=== PATIENT | male | born 1985 | race Caucasian/White ===

== ENCOUNTER 2017-10-10 14:19 | Inpatient (IN) | payer OTHER, SELFPAY ==
[2017-10-10] VITALS (9 sets, daily range): BP systolic 144–157; BP diastolic 88–109; PULSE 59–81; RESP 18; TEMP 36.6–37.1; O2SAT 94–99; BMI 21.7; BMI 21.8
--- NOTE | 2017-10-10 14:45 | PCM.HP.STD ---
Problem List (1) Alcohol withdrawal Status: Acute (2) Tobacco abuse Status: Chronic (3) Alcohol abuse Status: Chronic (4) Seizure disorder Status: Chronic History of Present Illness Date of Admission: 10/10/17 Chief Complaint: Alcohol withdrawal. The patient is a 32 year old M with past medical history as mentioned above presented to the [facility] office requesting admission for alcohol withdrawal for medical stabilization. Patient has been drinking at least 10-12 beers daily for the last 8 years and last drink was last night. Early this morning, he started having symptoms of withdrawal including hand tremors and restlessness, associated with anxiety, but has been progressive since this morning and he came to the [facility]'s office requesting admission for medical stabilization and to avoid having seizures. He denied abdominal pain, nausea or vomiting. Denied chest pain or shortness of breath. Denied urinary symptoms. Denied cough or sputum production. He denies use of any other recreational drugs. He has a history of seizure ?1 back in 2009 and since then, he has been on Keppra. His seizure problem has been stable. It is not clear if that seizure is due to alcohol withdrawal. He had alcohol abuse problem since he was 24 years old, has been drinking almost every day about 10-12 beers. He is a smoker, smokes about 1 pack daily for more than 10 years. At this time, he is afebrile, heart rate stable, blood pressure slightly elevated, pulse ox is maintained on room air. He was a direct admit and no blood work done at this time. He is being admitted for alcohol withdrawal for medical stabilization. Past Medical History Past Medical History (Chronic Problems): Chronic Problems Tobacco abuse (Chronic) Alcohol abuse (Chronic) Seizure disorder (Chronic) Allergies No Known Allergies Allergy (Verified 10/10/17 14:44) Home Medications: Ambulatory Orders Medication Instructions Recorded Levetiracetam [Keppra] 500 mg PO DAILY 10/10/17 Surgical History: no surgical history Psychiatric History: No pertinent psych hx Smoking Status: Current every day smoker Alcohol: Heavy Drugs: None - *Family History Maternal History Items: No pertinent history Paternal History Items: No pertinent history Review of Systems Constitutional: Denies: Anorexia, Chills, Fever, Weakness Eyes: Denies: Blurred vision, Double vision, Drainage, Redness HEENT: Denies: Difficulty Hearing, Ear Pain, Eye Pain, Nasal Congestion, Sore Throat Cardiovascular: Denies: Chest Pain, Chest Pressure, Chest Tightness, Heaviness, Light Headedness, Palpitations, Syncope Respiratory: Denies: Cough, Pleuritic Pain, Shortness of Breath, Sputum production, Wheezing Gastrointestinal: Denies: Abdominal Pain, Constipation, Diarrhea, Nausea, Vomiting Genitourinary: Denies: Dysuria, Frequency, Hematuria Musculoskeletal: Denies: Arm Pain, Back Pain, Foot Pain Skin: Denies: Dryness, Rash Neurological: Denies: Balance problems, Double vision, Change in Speech, Slurred speech, Confusion, Headaches, Incoordination, Numbness, Tingling, Seizures Psychiatric: Reports: Anxiety. Denies: Depression Endocrine: Denies: Change in Body Habitus, Polydipsia VTE Information - Inpt Only VTE Present on Admission: No VTE Mechan Device Prophylaxis: None VTE Pharm Prophylaxis ordered?: No Patient Problems: Active and Suspected Problems Alcohol withdrawal (Acute) - Physical Exam General: Alert, Oriented x3, Cooperative, - - Minimal anxiety. HEENT: Atraumatic, PERRLA, EOMI, Normocephalic Oral: Moist Mucosa, No Gingival or Mucosal Lesions/ Ulcerations Neck: Supple, No JVD, Negative Carotid Bruits, Trachea Midline, Thyroid Normal Size and Texture Lungs: Clear to auscultation, Normal air movement, No rhonchi, No wheeze, No rales Cardiovascular: Regular rate, Regular Rhythm, Normal S1, Normal S2, No murmurs Abdomen: Bowel Sounds Present, Soft, Non Tender, Non-Distended, No Hepato-splenomegaly Extremities: No clubbing, No cyanosis, No edema Skin: No rashes, No breakdown Lymphatic: No Cervical, Supraclavicular, or Inguinal Adenopathy Neurological: Cranial nerves II-XII grossly intact, Motor Exam 5/5 strength throughout Psych/Mental Status: Normal Affect, Anxious, Alert and oriented to time, place, person, mood and affect Vital Signs Temp Pulse Resp BP Pulse Ox 98.8 F 81 18 157/96 H 99 10/10/17 14:42 10/10/17 14:42 10/10/17 14:42 10/10/17 14:42 10/10/17 14:42 Oxygen Delivery Method Room Air Weight: 165 lb Body Mass Index (BMI) 21.7 Assessment/Plan All Active Problems Alcohol withdrawal (Acute) This is a 32 year-old male patient presented to the [facility] office requesting admission for alcohol withdrawal for medical stabilization. #1 acute alcohol withdrawal: He has been drinking for 8 years, every day, 10-12 beers daily, last drink was last night. Denied use of any other recreational drugs. He had a history of seizure in 2009, not clear if it is due to alcohol withdrawal, has been on Keppra since then. [facility], cardiac monitoring, CIWA protocol, seizure precautions, initiate [facility] protocol for alcohol withdrawal with tapering course of Ativan, CIWA protocol, stat CBC, CMP, blood alcohol level, urine drug screen, pro time and INR, serum lipase, folic acid and thiamine supplement, multivitamins, as needed Tylenol, Catapres, Bentyl, Vistaril, methocarbamol, Zofran, Mirapex and Seroquel. #2 seizure disorder: He had one seizure back in 2009, not clear if it is due to alcohol withdrawal. He has been on Keppra since then and has been stable. Plan to continue Keppra. #3 tobacco abuse: NicoDerm patch if desired. #4 alcohol abuse: Plan as above. #5 DVT prophylaxis: Low risk patient, no prophylaxis indicated. This note was generated with [employer] dictation software. It may contain incorrect words, spelling, and punctuation that were not noted in checking the note before signing. Code Visit Inpatient E&M: 26797 Init Hosp L2
--- NOTE | 2017-10-10 14:53 | HP.PCM_ITS ---
Problem List (1) Alcohol withdrawal Status: Acute (2) Tobacco abuse Status: Chronic (3) Alcohol abuse Status: Chronic (4) Seizure disorder Status: Chronic History of Present Illness Date of Admission: 10/10/17 Chief Complaint: Alcohol withdrawal. The patient is a 32 year old M with past medical history as mentioned above presented to the [facility] office requesting admission for alcohol withdrawal for medical stabilization. Patient has been drinking at least 10-12 beers daily for the last 8 years and last drink was last night. Early this morning, he started having symptoms of withdrawal including hand tremors and restlessness , associated with anxiety, but has been progressive since this morning and he came to the [facility]'s office requesting admission for medical stabilization and to avoid having seizures. He denied abdominal pain, nausea or vomiting. Denied chest pain or shortness of breath. Denied urinary symptoms. Denied cough or sputum production. He denies use of any other recreational drugs. He has a history of seizure ?1 back in 2009 and since then, he has been on Keppra. His seizure problem has been stable. It is not clear if that seizure is due to alcohol withdrawal. He had alcohol abuse problem since he was 24 years old, has been drinking almost every day about 10-12 beers. He is a smoker, smokes about 1 pack daily for more than 10 years. At this time, he is afebrile, heart rate stable, blood pressure slightly elevated, pulse ox is maintained on room air. He was a direct admit and no blood work done at this time. He is being admitted for alcohol withdrawal for medical stabilization. Past Medical History Past Medical History (Chronic Problems): Chronic Problems Tobacco abuse (Chronic) Alcohol abuse (Chronic) Seizure disorder (Chronic) Allergies No Known Allergies Allergy (Verified 10/10/17 14:44) Home Medications: Ambulatory Orders Medication Instructions Recorded Levetiracetam [Keppra] 500 mg PO DAILY 10/10/17 Surgical History: no surgical history Psychiatric History: No pertinent psych hx Smoking Status: Current every day smoker Alcohol: Heavy Drugs: None - *Family History Maternal History Items: No pertinent history Paternal History Items: No pertinent history Review of Systems Constitutional: Denies: Anorexia, Chills, Fever, Weakness Eyes: Denies: Blurred vision, Double vision, Drainage, Redness HEENT: Denies: Difficulty Hearing, Ear Pain, Eye Pain, Nasal Congestion, Sore Throat Cardiovascular: Denies: Chest Pain, Chest Pressure, Chest Tightness, Heaviness, Light Headedness, Palpitations, Syncope Respiratory: Denies: Cough, Pleuritic Pain, Shortness of Breath, Sputum production, Wheezing Gastrointestinal: Denies: Abdominal Pain, Constipation, Diarrhea, Nausea, Vomiting Genitourinary: Denies: Dysuria, Frequency, Hematuria Musculoskeletal: Denies: Arm Pain, Back Pain, Foot Pain Skin: Denies: Dryness, Rash Neurological: Denies: Balance problems, Double vision, Change in Speech, Slurred speech, Confusion, Headaches, Incoordination, Numbness, Tingling, Seizures Psychiatric: Reports: Anxiety. Denies: Depression Endocrine: Denies: Change in Body Habitus, Polydipsia VTE Information - Inpt Only VTE Present on Admission: No VTE Mechan Device Prophylaxis: None VTE Pharm Prophylaxis ordered?: No Patient Problems: Active and Suspected Problems Alcohol withdrawal (Acute) - Physical Exam General: Alert, Oriented x3, Cooperative, - - Minimal anxiety. HEENT: Atraumatic, PERRLA, EOMI, Normocephalic Oral: Moist Mucosa, No Gingival or Mucosal Lesions/ Ulcerations Neck: Supple, No JVD, Negative Carotid Bruits, Trachea Midline, Thyroid Normal Size and Texture Lungs: Clear to auscultation, Normal air movement, No rhonchi, No wheeze, No rales Cardiovascular: Regular rate, Regular Rhythm, Normal S1, Normal S2, No murmurs Abdomen: Bowel Sounds Present, Soft, Non Tender, Non-Distended, No Hepato- splenomegaly Extremities: No clubbing, No cyanosis, No edema Skin: No rashes, No breakdown Lymphatic: No Cervical, Supraclavicular, or Inguinal Adenopathy Neurological: Cranial nerves II-XII grossly intact, Motor Exam 5/5 strength throughout Psych/Mental Status: Normal Affect, Anxious, Alert and oriented to time, place, person, mood and affect Vital Signs Temp Pulse Resp BP Pulse Ox 98.8 F 81 18 157/96 H 99 10/10/17 14:42 10/10/17 14:42 10/10/17 14:42 10/10/17 14:42 10/10/17 14:42 Oxygen Delivery Method Room Air Weight: 165 lb Body Mass Index (BMI) 21.7 Assessment/Plan All Active Problems Alcohol withdrawal (Acute) This is a 32 year-old male patient presented to the [facility] office requesting admission for alcohol withdrawal for medical stabilization. #1 acute alcohol withdrawal: He has been drinking for 8 years, every day, 10-12 beers daily, last drink was last night. Denied use of any other recreational drugs. He had a history of seizure in 2009, not clear if it is due to alcohol withdrawal, has been on Keppra since then. [facility], cardiac monitoring, CIWA protocol, seizure precautions, initiate [facility] protocol for alcohol withdrawal with tapering course of Ativan, CIWA protocol, stat CBC, CMP, blood alcohol level, urine drug screen, pro time and INR, serum lipase, folic acid and thiamine supplement, multivitamins, as needed Tylenol, Catapres, Bentyl, Vistaril, methocarbamol, Zofran, Mirapex and Seroquel. #2 seizure disorder: He had one seizure back in 2009, not clear if it is due to alcohol withdrawal. He has been on Keppra since then and has been stable. Plan to continue Keppra. #3 tobacco abuse: NicoDerm patch if desired. #4 alcohol abuse: Plan as above. #5 DVT prophylaxis: Low risk patient, no prophylaxis indicated. This note was generated with [employer] dictation software. It may contain incorrect words, spelling, and punctuation that were not noted in checking the note before signing. Code Visit Inpatient E&M: 84586 Init Hosp L2
[2017-10-10 15:11] LABS: Absolute Lymphocyte Count 1.79 X10^3/ul (0.83-4.51); Absolute Neutrophil Count 4.4 X10^3/uL (2.0-7.7); Basophil# 0.03 X10^3/uL; Basophil% 0.4 % (0-1); Eosinophil# 0.06 X10^3/uL; Eosinophils% 0.8 % (0-5); Hematocrit 46.6 % (40-54); Hemoglobin 16.7 g/dl (13.0-16.5); Lymphocyte # 1.79 X10^3/ul (4.0); Lymphocyte % 25.2 % (19-41); Mean Corp Hgb Conc 35.8 g/gl (32-36); Mean Corpuscular Volume 92.1 fL (80-94); Mean Platelet Vol. 8.9 fl (6.2-12.0); Monocyte# 0.78 X10^3/uL; Neutrophil # 4.43 X10^3/uL (2.7-7.7); Neutrophil % 62.5 % (47-70); Platelet Count 207 K/mm3 (150-450); RBC Distribution Width CV 12.1 % (11.6-14.6); RBC Distribution Width SD 40.6 fl (35.1-43.9); Red Blood Count 5.06 M/mm3 (4.6-6.2); White Blood Count 7.1 K/mm3 (4.4-11.0)
[2017-10-10 15:16] LABS: POSITIVE COUNT NO; POSITIVE DIFFERENTIAL NO; POSITIVE MORPHOLOGY NO
[2017-10-10 15:18] LABS: Prothrombin Time (Protime)PT. 12.8 SECONDS (11.7-14.9)
[2017-10-10 15:26] LABS: AST(SGOT) 81 U/L (15-37); Alanine Aminotransfer ALT/SGPT 149 U/L (16-61); Albumin, Serum 4.2 g/dL (3.2-5.0); Alkaline Phosphatase 87 U/L (45-117); Anion Gap 8 (5-15); BUN 11 mg/dL (7-18); Calcium,Total 9.5 mg/dL (8.5-10.1); Chloride 103 mmol/L (98-107); Creatinine, Serum 0.65 mg/dL (0.70-1.30); EST Glomerular Filtration Rate 152 mL/min (>60); Est Glom Filt Rate - Afr Amer 184 mL/min (>60); Estimated Creatinine Clearance 172.71 ml/min; Globulin 4.1 g/dL (2.2-4.2); Glucose 92 mg/dL (74-106); Lipase 207 U/L (73-393); Potassium 3.7 mmol/L (3.5-5.1); Protein, Total 8.3 g/dL (6.4-8.2); Sodium Level 137 mmol/L (136-145)
[2017-10-10 15:58] LABS: Alcohol, Blood (Medical)-Serum < 3.0 mg/dL
[2017-10-10] MEDS: LORazepam 1 MG Tablet PO ×2 (18:06→21:33)
[2017-10-10] MEDS: cloNIDine HCl 0.1 MG Tablet PO ×2 (18:06→21:33)
[2017-10-10 18:45] LABS: Amphetamine Urine VISTA NEGATIVE (<1000 ng/mL); Barbiturate Urine VISTA NEGATIVE (< 200 ng/mL); Benzodiazepine Urine VISTA NEGATIVE (< 200 ng/mL); Cocaine Urine VISTA NEGATIVE (< 300 ng/mL); Ecstacy Urine VISTA NEGATIVE (< 500 ng/mL); Methadone Urine VISTA NEGATIVE (< 300 ng/mL); PCP Urine VISTA NEGATIVE (< 25 ng/mL); THC Urine VISTA NEGATIVE (< 50 ng/mL); Vista UDS pH Range 6
[2017-10-11] VITALS (10 sets, daily range): BP systolic 113–141; BP diastolic 76–98; PULSE 63–102; RESP 16; TEMP 36.6–37.1; O2SAT 97–100
[2017-10-11] MEDS: LORazepam 1 MG Tablet PO ×3 (02:37→11:00)
[2017-10-11] MEDS: cloNIDine HCl 0.1 MG Tablet PO ×6 (02:37→22:23)
[2017-10-11 05:12] LABS: Anion Gap 8 (5-15); BUN 12 mg/dL (7-18); BUN/Creat Ratio 17.6 RATIO (10-20); Calcium,Total 9.1 mg/dL (8.5-10.1); Chloride 103 mmol/L (98-107); Creatinine, Serum 0.68 mg/dL (0.70-1.30); EST Glomerular Filtration Rate 143 mL/min (>60); Est Glom Filt Rate - Afr Amer 173 mL/min (>60); Estimated Creatinine Clearance 165.09 ml/min; Glucose 102 mg/dL (74-106); Magnesium 2.2 mg/dL (1.6-2.6); Phosphorus 2.8 mg/dL (2.5-4.9); Potassium 4.3 mmol/L (3.5-5.1); Sodium Level 138 mmol/L (136-145)
[2017-10-11] MEDS: Thiamine Hydrochloride 100 MG Tablet PO (07:41)
[2017-10-11] MEDS: Multivitamins,Ther W-Minerals Tablet 1 TABLET PO (07:41)
[2017-10-11] MEDS: Folic Acid 1 MG Tablet PO (07:41)
[2017-10-11] MEDS: levETIRAcetam 500 MG Tablet PO (07:43)
--- NOTE | 2017-10-11 11:16 | PCM.PN.HOSP ---
Patient Problems: Active and Suspected Problems Alcohol withdrawal (Acute) Subjective: Patient feels good. No tremors, abdominal pain, leg pain, abdominal cramps, nausea. Vitals/I&O's: Vital Signs Temp Pulse Resp BP Pulse Ox 36.7 C 63 16 141/95 H 99 10/11/17 07:32 10/11/17 07:32 10/11/17 07:32 10/11/17 07:32 10/11/17 07:32 Oxygen Delivery Method Room Air Weight: 74.843 kg Body Mass Index (BMI) 21.7 Intake and Output for Last 24 Hours 10/09/17 10/10/17 10/11/17 23:59 23:59 23:59 Intake Total 300 / 300 490 / 490 Balance 300 / 300 490 / 490 General: Alert, No apparent distress HEENT: Atraumatic, Normocephalic Neck: No Nodes, Thyroid Normal Size and Texture Lungs: Clear to auscultation, Normal air movement, No rhonchi, No wheeze Cardiovascular: Regular rate, Regular Rhythm, Normal S1, Normal S2 Abdomen: Bowel Sounds Present, Soft, Non Tender, Non-Distended, No Hepato-splenomegaly Extremities: No edema, No Calf Tenderness Skin: No rashes, No breakdown Psych/Mental Status: Normal Affect, Appropriate Laboratory Results 10/10/17 14:57: WBC 7.1, RBC 5.06, Hgb 16.7 H, Hct 46.6, MCV 92.1, MCH 33.0 H, MCHC 35.8, RDW 12.1, RDW Differential 40.6, Plt Count 207, MPV 8.9, Immature Gran % (Auto) 0.100, Neut % (Auto) 62.5, Lymph % (Auto) 25.2, [place] % (Auto) 11.0 H, Eos % (Auto) 0.8, Baso % (Auto) 0.4, Absolute Neuts (auto) 4.4, Absolute Lymphs (auto) 1.79, Total Counted Not Reportable 10/10/17 14:57: PT 12.8, INR 1.0 10/10/17 14:57: Sodium 137, Potassium 3.7, Chloride 103, Carbon Dioxide 26.0, Anion Gap 8, BUN 11, Creatinine 0.65 L, Estim Creat Clear Calc 172.71, Est GFR (MDRD) Af Amer 184, Est GFR (MDRD) Non-Af 152, BUN/Creatinine Ratio 17.0, Glucose 92, Calcium 9.5, Total Bilirubin 0.80, AST 81 H, ALT 149 H, Alkaline Phosphatase 87, Total Protein 8.3 H, Albumin 4.2, Globulin 4.1, Albumin/Globulin Ratio 1.0, Lipase 207 10/10/17 14:57: Ethyl Alcohol < 3.0 10/10/17 18:10: Urine Opiates Screen NEGATIVE, Urine Methadone Screen NEGATIVE, Ur Barbiturates Screen NEGATIVE, Ur Phencyclidine Scrn NEGATIVE, Ur Amphetamines Screen NEGATIVE, U Methamphetamin-MDMA NEGATIVE, U Benzodiazepines Scrn NEGATIVE, Urine Cocaine Screen NEGATIVE, U Cannabinoids Screen NEGATIVE, Ur Drug Screen Comment 10/11/17 04:50: Sodium 138, Potassium 4.3, Chloride 103, Carbon Dioxide 27.0, Anion Gap 8, BUN 12, Creatinine 0.68 L, Estim Creat Clear Calc 165.09, Est GFR (MDRD) Af Amer 173, Est GFR (MDRD) Non-Af 143, BUN/Creatinine Ratio 17.6, Glucose 102, Calcium 9.1, Phosphorus 2.8, Magnesium 2.2 Current Medications Acetaminophen (Tylenol) 500 mg PO Q4H PRN PRN PRN Reason: Temp > 100.4 F Clonidine (Catapres) 0.1 mg PO Q4 [facility] Last Admin: 10/11/17 11:00 Dose: 0.1 mg Dicyclomine HCl (Bentyl) 20 mg PO Q6H PRN PRN PRN Reason: abdominal discomfort Folic Acid (Folic Acid) 1 mg PO DAILY@0800 [facility] Last Admin: 10/11/17 07:41 Dose: 1 mg Hydroxyzine Pamoate (Vistaril Pamoate Capsule) 50 mg PO Q6H PRN PRN PRN Reason: Mild Anxiety (score 1/3) Levetiracetam (Keppra Tablet) 500 mg PO DAILY [facility] Last Admin: 10/11/17 07:43 Dose: 500 mg Lorazepam (Ativan) 1 mg PO Q6H [facility] PRN Reason: Taper Stop: 10/13/17 18:29 Last Admin: 10/11/17 11:00 Dose: 1 mg Methocarbamol (Methocarbamol) 750 mg PO Q6H PRN PRN PRN Reason: Muscle Aches [facility] Admin: 10/11/17 07:41 Dose: 1 tablet Nicotine (Nicoderm Cq (Pbkc)) 21 mg TRANSDERM. DAILY [facility] Last Admin: 10/11/17 11:01 Dose: 21 mg Ondansetron HCl (Zofran Odt) 4 mg PO Q6H PRN PRN PRN Reason: NAUSEA Pramipexole Dihydrochloride (Mirapex) 0.25 mg PO Q12H PRN PRN PRN Reason: Restless legs Quetiapine Fumarate (Seroquel) 25 mg PO Q6H PRN PRN PRN Reason: Moderate Anxiety (score 2/3) [facility] Last Admin: 10/11/17 07:41 Dose: 100 mg Medical Necessity - Tobacco Use Smoking Status: Current every day smoker Assessment/Plan All Active Problems Alcohol withdrawal (Acute) 1. Acute alcohol withdrawal Patient is having no symptoms whatsoever. His CIWA score is 0. Patient has been receiving scheduled Ativan while he has been here. Given his CIWA score. I am going to change his Ativan to as needed to be utilized only if his score is high enough to elicit it. Patient does fine overnight and still remains with a low score than I do not feel the patient would require further hospitalization at that point. And would likely be discharged and follow-up with his outpatient facility on the fourth. Code Visit Inpatient E&M: 24764 Subs Hosp L2
--- NOTE | 2017-10-11 11:20 | PN_ITS ---
Patient Problems: Active and Suspected Problems Alcohol withdrawal (Acute) Subjective: Patient feels good. No tremors, abdominal pain, leg pain, abdominal cramps, nausea. Vitals/I&O's: Vital Signs Temp Pulse Resp BP Pulse Ox 36.7 C 63 16 141/95 H 99 10/11/17 07:32 10/11/17 07:32 10/11/17 07:32 10/11/17 07:32 10/11/17 07:32 Oxygen Delivery Method Room Air Weight: 74.843 kg Body Mass Index (BMI) 21.7 Intake and Output for Last 24 Hours 10/09/17 10/10/17 10/11/17 23:59 23:59 23:59 Intake Total 300 / 300 490 / 490 Balance 300 / 300 490 / 490 General: Alert, No apparent distress HEENT: Atraumatic, Normocephalic Neck: No Nodes, Thyroid Normal Size and Texture Lungs: Clear to auscultation, Normal air movement, No rhonchi, No wheeze Cardiovascular: Regular rate, Regular Rhythm, Normal S1, Normal S2 Abdomen: Bowel Sounds Present, Soft, Non Tender, Non-Distended, No Hepato- splenomegaly Extremities: No edema, No Calf Tenderness Skin: No rashes, No breakdown Psych/Mental Status: Normal Affect, Appropriate Laboratory Results 10/10/17 14:57: WBC 7.1, RBC 5.06, Hgb 16.7 H, Hct 46.6, MCV 92.1, MCH 33.0 H, MCHC 35.8, RDW 12.1, RDW Differential 40.6, Plt Count 207, MPV 8.9, Immature Gran % (Auto) 0.100, Neut % (Auto) 62.5, Lymph % (Auto) 25.2, [place] % (Auto) 11.0 H, Eos % (Auto) 0.8, Baso % (Auto) 0.4, Absolute Neuts (auto) 4.4, Absolute Lymphs (auto) 1.79, Total Counted Not Reportable 10/10/17 14:57: PT 12.8, INR 1.0 10/10/17 14:57: Sodium 137, Potassium 3.7, Chloride 103, Carbon Dioxide 26.0, Anion Gap 8, BUN 11, Creatinine 0.65 L, Estim Creat Clear Calc 172.71, Est GFR ( MDRD) Af Amer 184, Est GFR (MDRD) Non-Af 152, BUN/Creatinine Ratio 17.0, Glucose 92, Calcium 9.5, Total Bilirubin 0.80, AST 81 H, ALT 149 H, Alkaline Phosphatase 87, Total Protein 8.3 H, Albumin 4.2, Globulin 4.1, Albumin/ Globulin Ratio 1.0, Lipase 207 10/10/17 14:57: Ethyl Alcohol < 3.0 10/10/17 18:10: Urine Opiates Screen NEGATIVE, Urine Methadone Screen NEGATIVE, Ur Barbiturates Screen NEGATIVE, Ur Phencyclidine Scrn NEGATIVE, Ur Amphetamines Screen NEGATIVE, U Methamphetamin-MDMA NEGATIVE, U Benzodiazepines Scrn NEGATIVE, Urine Cocaine Screen NEGATIVE, U Cannabinoids Screen NEGATIVE, Ur Drug Screen Comment 10/11/17 04:50: Sodium 138, Potassium 4.3, Chloride 103, Carbon Dioxide 27.0, Anion Gap 8, BUN 12, Creatinine 0.68 L, Estim Creat Clear Calc 165.09, Est GFR ( MDRD) Af Amer 173, Est GFR (MDRD) Non-Af 143, BUN/Creatinine Ratio 17.6, Glucose 102, Calcium 9.1, Phosphorus 2.8, Magnesium 2.2 Current Medications Acetaminophen (Tylenol) 500 mg PO Q4H PRN PRN PRN Reason: Temp > 100.4 F Clonidine (Catapres) 0.1 mg PO Q4 [facility] Last Admin: 10/11/17 11:00 Dose: 0.1 mg Dicyclomine HCl (Bentyl) 20 mg PO Q6H PRN PRN PRN Reason: abdominal discomfort Folic Acid (Folic Acid) 1 mg PO DAILY@0800 [facility] Last Admin: 10/11/17 07:41 Dose: 1 mg Hydroxyzine Pamoate (Vistaril Pamoate Capsule) 50 mg PO Q6H PRN PRN PRN Reason: Mild Anxiety (score 1/3) Levetiracetam (Keppra Tablet) 500 mg PO DAILY [facility] Last Admin: 10/11/17 07:43 Dose: 500 mg Lorazepam (Ativan) 1 mg PO Q6H [facility] PRN Reason: Taper Stop: 10/13/17 18:29 Last Admin: 10/11/17 11:00 Dose: 1 mg Methocarbamol (Methocarbamol) 750 mg PO Q6H PRN PRN PRN Reason: Muscle Aches Multivitamins/Minerals ([facility]) [facility] Admin: 10/11/17 07:41 Dose: 1 tablet Nicotine (Nicoderm Cq (Pbkc)) 21 mg TRANSDERM. DAILY [facility] Last Admin: 10/11/17 11:01 Dose: 21 mg Ondansetron HCl (Zofran Odt) 4 mg PO Q6H PRN PRN PRN Reason: NAUSEA Pramipexole Dihydrochloride (Mirapex) 0.25 mg PO Q12H PRN PRN PRN Reason: Restless legs Quetiapine Fumarate (Seroquel) 25 mg PO Q6H PRN PRN PRN Reason: Moderate Anxiety (score 2/3) Thiamine HCl (Vitamin B1) [facility] Last Admin: 10/11/17 07:41 Dose: 100 mg Medical Necessity - Tobacco Use Smoking Status: Current every day smoker Assessment/Plan All Active Problems Alcohol withdrawal (Acute) 1. Acute alcohol withdrawal * Patient is having no symptoms whatsoever. * His CIWA score is 0. Patient has been receiving scheduled Ativan while he has been here. * Given his CIWA score. I am going to change his Ativan to as needed to be utilized only if his score is high enough to elicit it. Patient does fine overnight and still remains with a low score than I do not feel the patient would require further hospitalization at that point. And would likely be discharged and follow-up with his outpatient facility on the fourth. Code Visit Inpatient E&M: 54018 Subs Hosp L2
[2017-10-12 02:00] VITALS: BP 120/76; PULSE 59; RESP 16; TEMP 36.3; TEMP 36.4; O2SAT 98
[2017-10-12] MEDS: cloNIDine HCl 0.1 MG Tablet PO ×3 (02:33→10:53)
[2017-10-12 05:44] VITALS: BP 126/85; PULSE 69; RESP 16; TEMP 36.9
[2017-10-12 08:03] VITALS: BP 111/83; PULSE 60; RESP 16; TEMP 36.6; O2SAT 99
[2017-10-12 08:06] VITALS: BP 111/83; PULSE 60; RESP 16; TEMP 36.6; O2SAT 99
[2017-10-12] MEDS: levETIRAcetam 500 MG Tablet PO (08:11)
[2017-10-12] MEDS: Folic Acid 1 MG Tablet PO (08:11)
[2017-10-12] MEDS: Multivitamins,Ther W-Minerals Tablet 1 TABLET PO (08:12)
[2017-10-12] MEDS: Thiamine Hydrochloride 100 MG Tablet PO (08:12)
--- NOTE | 2017-10-12 10:03 | PCM.PN.HOSP ---
Patient Problems: Active and Suspected Problems Alcohol withdrawal (Acute) Subjective: No events overnight. Feels good. Vitals/I&O's: Vital Signs Temp Pulse Resp BP Pulse Ox 36.6 C 60 16 111/83 H 99 10/12/17 08:06 10/12/17 08:06 10/12/17 08:06 10/12/17 08:06 10/12/17 08:06 Oxygen Delivery Method Room Air Weight: 74.843 kg Body Mass Index (BMI) 21.7 Intake and Output for Last 24 Hours 10/10/17 10/11/17 10/12/17 23:59 23:59 23:59 Intake Total 300 / 300 490 / 490 Balance 300 / 300 490 / 490 General: Alert, No apparent distress HEENT: Atraumatic, Normocephalic Current Medications Acetaminophen (Tylenol) 500 mg PO Q4H PRN PRN PRN Reason: Temp > 100.4 F Clonidine (Catapres) 0.1 mg PO Q4 [facility] Last Admin: 10/12/17 05:43 Dose: 0.1 mg Dicyclomine HCl (Bentyl) 20 mg PO Q6H PRN PRN PRN Reason: abdominal discomfort Folic Acid (Folic Acid) 1 mg PO DAILY@0800 [facility] Last Admin: 10/12/17 08:11 Dose: 1 mg Hydroxyzine Pamoate (Vistaril Pamoate Capsule) 50 mg PO Q6H PRN PRN PRN Reason: Mild Anxiety (score 1/3) Levetiracetam (Keppra Tablet) 500 mg PO DAILY [facility] Last Admin: 10/12/17 08:11 Dose: 500 mg Lorazepam (Ativan) 2 mg PO Q2H PRN PRN; Protocol PRN Reason: CIWA score > 8 but <15 Lorazepam (Ativan) 2 mg PO UD PRN; Protocol PRN Reason: CIWA score >/=15. Methocarbamol (Methocarbamol) 750 mg PO Q6H PRN PRN PRN Reason: Muscle Aches Multivitamins/Minerals (Multivitamin With Minerals) 1 tablet PO DAILYCM [facility] Last Admin: 10/12/17 08:12 Dose: 1 tablet Nicotine (Nicoderm Cq (Pbkc)) 21 mg TRANSDERM. DAILY [facility] Last Admin: 10/11/17 11:01 Dose: 21 mg Ondansetron HCl (Zofran Odt) 4 mg PO Q6H PRN PRN PRN Reason: NAUSEA Pramipexole Dihydrochloride (Mirapex) 0.25 mg PO Q12H PRN PRN PRN Reason: Restless legs Quetiapine Fumarate (Seroquel) 25 mg PO Q6H PRN PRN PRN Reason: Moderate Anxiety (score 2/3) Thiamine HCl (Vitamin B1) 100 mg PO DAILYCM [facility] Last Admin: 10/12/17 08:12 Dose: 100 mg Medical Necessity - Tobacco Use Smoking Status: Current every day smoker Assessment/Plan All Active Problems Alcohol withdrawal (Acute) 1. Acute alcohol withdrawal Patient is having no symptoms whatsoever. Scheduled ativan was discontinued on 10/11 His CIWA score is 0. Since his CIWA score is 0, and he has not defervesced since stopping scheduled ativan, patient can be discharged Pt said someone from the outpt facility was to pick him up from here on 10/13. He is going to call that individual to make him aware and see if they can establish another rally point.
--- NOTE | 2017-10-12 10:07 | PN_ITS ---
Patient Problems: Active and Suspected Problems Alcohol withdrawal (Acute) Subjective: No events overnight. Feels good. Vitals/I&O's: Vital Signs Temp Pulse Resp BP Pulse Ox 36.6 C 60 16 111/83 H 99 10/12/17 08:06 10/12/17 08:06 10/12/17 08:06 10/12/17 08:06 10/12/17 08:06 Oxygen Delivery Method Room Air Weight: 74.843 kg Body Mass Index (BMI) 21.7 Intake and Output for Last 24 Hours 10/10/17 10/11/17 10/12/17 23:59 23:59 23:59 Intake Total 300 / 300 490 / 490 Balance 300 / 300 490 / 490 General: Alert, No apparent distress HEENT: Atraumatic, Normocephalic Current Medications Acetaminophen (Tylenol) 500 mg PO Q4H PRN PRN PRN Reason: Temp > 100.4 F Clonidine (Catapres) 0.1 mg PO Q4 [facility] Last Admin: 10/12/17 05:43 Dose: 0.1 mg Dicyclomine HCl (Bentyl) 20 mg PO Q6H PRN PRN PRN Reason: abdominal discomfort Folic Acid (Folic Acid) 1 mg PO DAILY@0800 [facility] Last Admin: 10/12/17 08:11 Dose: 1 mg Hydroxyzine Pamoate (Vistaril Pamoate Capsule) 50 mg PO Q6H PRN PRN PRN Reason: Mild Anxiety (score 1/3) Levetiracetam (Keppra Tablet) 500 mg PO DAILY [facility] Last Admin: 10/12/17 08:11 Dose: 500 mg Lorazepam (Ativan) 2 mg PO Q2H PRN PRN; Protocol PRN Reason: CIWA score > 8 but <15 Lorazepam (Ativan) 2 mg PO UD PRN; Protocol PRN Reason: CIWA score >/=15. Methocarbamol (Methocarbamol) 750 mg PO Q6H PRN PRN PRN Reason: Muscle Aches Multivitamins/Minerals (Multivitamin With Minerals) 1 tablet PO DAILYCM [facility] Last Admin: 10/12/17 08:12 Dose: 1 tablet Nicotine (Nicoderm Cq (Pbkc)) 21 mg TRANSDERM. DAILY [facility] Last Admin: 10/11/17 11:01 Dose: 21 mg Ondansetron HCl (Zofran Odt) 4 mg PO Q6H PRN PRN PRN Reason: NAUSEA Pramipexole Dihydrochloride (Mirapex) 0.25 mg PO Q12H PRN PRN PRN Reason: Restless legs Quetiapine Fumarate (Seroquel) 25 mg PO Q6H PRN PRN PRN Reason: Moderate Anxiety (score 2/3) Thiamine HCl (Vitamin B1) 100 mg PO DAILYCM [facility] Last Admin: 10/12/17 08:12 Dose: 100 mg Medical Necessity - Tobacco Use Smoking Status: Current every day smoker Assessment/Plan All Active Problems Alcohol withdrawal (Acute) 1. Acute alcohol withdrawal * Patient is having no symptoms whatsoever. * Scheduled ativan was discontinued on 10/11 * His CIWA score is 0. * Since his CIWA score is 0, and he has not defervesced since stopping scheduled ativan, patient can be discharged * Pt said someone from the outpt facility was to pick him up from here on 10/13. He is going to call that individual to make him aware and see if they can establish another rally point.
--- NOTE | 2017-10-12 10:07 | PCM.DC ---
- Discharge Diagnoses Current Active Problems: Current Active and Chronic Problems Alcohol withdrawal (Acute) Tobacco abuse (Chronic) Alcohol abuse (Chronic) Seizure disorder (Chronic) You will use the following diet at home:: No restrictions Your food should be the consistency of: Regular Your liquids should be the consistency of: Regular/Thin Discharge Activity: Return to Normal Activity Allergies/Adverse Reactions: Allergies No Known Allergies Allergy (Verified 10/10/17 14:44) Medications to take at Discharge Levetiracetam [Keppra] 500 mg PO DAILY 10/10/17 Multivitamins,Therapeutic [Multivitamin] 1 tablet PO DAILY #1 tablet 10/12/17 The following prescriptions were given: Multivitamins,Therapeutic [Multivitamin] 1 tablet PO DAILY #1 tablet Primary Care Physician: Rosalba Akbar,Out of [Primary Care Provider] - Proposed Discharge Date: 10/12/17
--- NOTE | 2017-10-12 10:09 | DS.PCM_ITS ---
Discharge Date and Diagnosis - Problem List Patient Problems: Active and Suspected Problems Alcohol withdrawal (Acute) Date of Admission: 10/10/17 Date of Discharge: 10/12/17 - Primary Discharge Diagnosis Active and Suspected Problems Alcohol withdrawal (Acute) - Secondary Discharge Diagnosis Chronic Problems Tobacco abuse (Chronic) Alcohol abuse (Chronic) Seizure disorder (Chronic) Hospital Course and Treatment Operations: None Procedures: None Summary of Care Provided: The patient is a 32 year old M admitted for acute alcohol withdrawal. 1. Acute alcohol withdrawal * Patient is having no symptoms whatsoever. * Scheduled ativan was discontinued on 10/11 * His CIWA score is 0. * Since his CIWA score is 0, and he has not defervesced since stopping scheduled ativan, patient can be discharged * Pt said someone from the outpt facility was to pick him up from here on 10/13. He is going to call that individual to make him aware and see if they can establish another rally point.[] Discharge Diet: No Restrictions Discharge Activity: Return to Normal Activity Home Medications: Medications to take at Discharge Levetiracetam [Keppra] 500 mg PO DAILY 10/10/17 Multivitamins,Therapeutic [Multivitamin] 1 tablet PO DAILY #1 tablet 10/12/17 Following Prescrptions Were Given to Patient: Multivitamins,Therapeutic [Multivitamin] 1 tablet PO DAILY #1 tablet Primary Care Physician: Rosalba Akbar,Out of [Primary Care Provider] - Disposition: Home Minutes spent on discharge:: 25 Patient Condition:: Good Medical Necessity - Tobacco Use Smoking Status: Current every day smoker Meaningful Use Info Meaningful Use Diagnoses (Choose all that apply): None applicable Code Visit Inpatient E&M: 46427 Disch Hosp
[2017-10-12 14:00] VITALS: BP 114/77; PULSE 59; RESP 16; TEMP 36.6; O2SAT 98
--- NOTE | 2017-10-12 15:48 | PCA ---
Per doctor order, pt is to be discharged on this date. According to pt [facility] paperwork, pt is to be discharged to [facility] immediately after discharge on 10.13.17. This secretary administrative assistant called pt contact lens blocker and cutter/advocate, Chris Arteaga ([phone]), times two with no answer, voicemails left inquiring on if pt can be discharged on this date. Notified pt primary RNHansel of this information.
== END 2017-10-12 19:15 | disposition home or self-care (01) | DRG 897 ==
PROVIDERS: Internal Medicine; Admitting Provider Hospitalist
DX: F10.239 Alcohol dependence with withdrawal, unspecified (principal); F17.210 Nicotine dependence, cigarettes, uncomplicated; G40.909 Epilepsy, unspecified, not intractable, without status epilepticus
CPT/HCPCS: 36415; 80048; 80053; 80307; 80320; 83690; 83735; 84100; 85025; 85610; 93005; G0480